=== PATIENT | male | born 1965 | race Caucasian/White ===

== ENCOUNTER 2016-09-23 11:12 | Emergency (ER) | payer SELFPAY | END 2016-09-23 14:18 | disposition home or self-care (01) | LOC: ER 11:12 | DX: R11.2 Nausea with vomiting, unspecified (principal); R42 Dizziness and giddiness; R50.9 Fever, unspecified; R51 Headache; R05 Cough; R35.8 Other polyuria; I10 Essential (primary) hypertension; J44.9 Chronic obstructive pulmonary disease, unspecified; F17.210 Nicotine dependence, cigarettes, uncomplicated; Z79.899 Other long term (current) drug therapy | CPT/HCPCS: 36415; 87502; 96361; 96374 ==